=== PATIENT | female | born 1965 | race Caucasian/White ===

== ENCOUNTER 2016-11-20 11:20 | Emergency (ER) | payer OTHER ==
[2016-11-20 12:01] LABS: HEMOGLOBIN 10.1 gm/dl (12.3-15.3); RED BLOOD COUNT 3.86 M/UL (4.00-5.10); WHITE BLOOD COUNT 12.7 K/UL (4.5-11.0)
[2016-11-20 12:33] LABS: BUN/CREATININE RATIO 22 (0-10)
[2017-03-12] MEDS ORDERED: ALBUTEROL INH (07:01)
[2017-03-12] MEDS ORDERED: BREO ELLIPTA 11 EACH INH (07:02)
[2017-03-12] MEDS ORDERED: FEROSUL325 MG PO (07:03)
[2017-03-12] MEDS ORDERED: BENTYL 20MG TAB20 MG PO (07:03)
[2017-03-12] MEDS ORDERED: NEURONTIN 400400 MG PO (07:04)
[2017-03-12] MEDS ORDERED: NITROSTAT0.4 MG PO ×2 (07:05→07:09)
[2017-03-12] MEDS ORDERED: VISTARIL25 MG PO (07:05)
[2017-03-12] MEDS ORDERED: TRINTELLIX PO (07:06)
[2017-03-12] MEDS ORDERED: VENTOLIN HFA 66.7 GM INH (07:07)
[2017-03-12] MEDS ORDERED: VITAMIN D350000 UNIT PO (07:08)
== END 2016-11-20 15:37 | disposition home or self-care (01) ==
LOC: ER1 11:20
PROVIDERS: Family Medicine
DX: J18.0 Bronchopneumonia, unspecified organism (principal); I10 Essential (primary) hypertension; J45.909 Unspecified asthma, uncomplicated; F17.210 Nicotine dependence, cigarettes, uncomplicated; Z88.2 Allergy status to sulfonamides; Z90.49 Acquired absence of other specified parts of digestive tract
CPT/HCPCS: 36415; 71010; 80053; 82140; 82150; 82550; 82553; 83690; 83874; 84484; 85025; 87040; 93005; 96374; 96375; 99284; J1956; J2270; J2405; J2930

== ENCOUNTER → 2017-01-19 | Outpatient (CLI) | payer OTHER ==
[~2017-01-19] MED LIST: ALBUTEROL INH; BENTYL 20MG TAB20 MG PO; BREO ELLIPTA 11 EACH INH; FEROSUL325 MG PO; NEURONTIN 400400 MG PO; NITROSTAT0.4 MG PO; TRINTELLIX PO; VENTOLIN HFA 66.7 GM INH; VISTARIL25 MG PO; VITAMIN D350000 UNIT PO
== END ==
LOC: EXRD 09:55
DX: R06.02 Shortness of breath (principal); J42 Unspecified chronic bronchitis
CPT/HCPCS: 71020

== ENCOUNTER 2017-03-07 11:53 | Emergency (ER) | payer OTHER ==
[2017-03-07 13:02] LABS: RED BLOOD COUNT 4.27 M/UL (4.00-5.10); WHITE BLOOD COUNT 7.4 K/UL (4.5-11.0)
[2017-03-07 13:16] LABS: BUN/CREATININE RATIO 38 (0-10)
[2017-03-12] MEDS ORDERED: ALBUTEROL INH (07:01)
[2017-03-12] MEDS ORDERED: BREO ELLIPTA 11 EACH INH (07:02)
[2017-03-12] MEDS ORDERED: BENTYL 20MG TAB20 MG PO (07:03)
[2017-03-12] MEDS ORDERED: FEROSUL325 MG PO (07:03)
[2017-03-12] MEDS ORDERED: NEURONTIN 400400 MG PO (07:04)
[2017-03-12] MEDS ORDERED: NITROSTAT0.4 MG PO ×2 (07:05→07:09)
[2017-03-12] MEDS ORDERED: VISTARIL25 MG PO (07:05)
[2017-03-12] MEDS ORDERED: TRINTELLIX PO (07:06)
[2017-03-12] MEDS ORDERED: VENTOLIN HFA 66.7 GM INH (07:07)
[2017-03-12] MEDS ORDERED: VITAMIN D350000 UNIT PO (07:08)
== END 2017-03-07 14:35 | disposition home or self-care (01) ==
LOC: ER1 11:53
PROVIDERS: Physician Assistant Medical
DX: S39.012A Strain of muscle, fascia and tendon of lower back, initial encounter (principal); R10.9 Unspecified abdominal pain; I10 Essential (primary) hypertension; D64.9 Anemia, unspecified; J45.909 Unspecified asthma, uncomplicated; J44.9 Chronic obstructive pulmonary disease, unspecified; F17.210 Nicotine dependence, cigarettes, uncomplicated; Z88.2 Allergy status to sulfonamides; X50.9XXA Other and unspecified overexertion or strenuous movements or postures, initial encounter
CPT/HCPCS: 36415; 72131; 80053; 81001; 83605; 85025; 96361; 96374; 96375; 96376; 99284; J2270; J2405; J7030

== ENCOUNTER → 2017-03-12 | Day surgery (SDC) | payer OTHER | END | disposition home or self-care (01) | LOC: OR 06:38 | PROVIDERS: Surgery | PROC: 0DJ08ZZ Inspection of Upper Intestinal Tract, Via Natural or Artificial Opening Endoscopic (ICD-10-PCS; principal; 2017-03-12 07:30) | PROC: 0DJD8ZZ Inspection of Lower Intestinal Tract, Via Natural or Artificial Opening Endoscopic (ICD-10-PCS; 2017-03-12 07:30) | DX: R19.5 Other fecal abnormalities (principal); R10.13 Epigastric pain; D64.9 Anemia, unspecified; M19.90 Unspecified osteoarthritis, unspecified site; M06.9 Rheumatoid arthritis, unspecified; E55.9 Vitamin D deficiency, unspecified; J44.9 Chronic obstructive pulmonary disease, unspecified; E11.9 Type 2 diabetes mellitus without complications; I10 Essential (primary) hypertension; F17.210 Nicotine dependence, cigarettes, uncomplicated; Z98.84 Bariatric surgery status; Z87.19 Personal history of other diseases of the digestive system; Z90.49 Acquired absence of other specified parts of digestive tract; Z88.2 Allergy status to sulfonamides; Z88.8 Allergy status to other drugs, medicaments and biological substances; Z79.899 Other long term (current) drug therapy; Z90.710 Acquired absence of both cervix and uterus; Z86.69 Personal history of other diseases of the nervous system and sense organs | CPT/HCPCS: J7120 ==

== ENCOUNTER 2020-09-15 12:01 | Inpatient (IN) | payer OTHER ==
[~2020-09-15] VITALS: Ht 160 cm; Wt 64.4 kg
[~2020-09-15 12:01] MED LIST changes: -ALBUTEROL INH; +AUGMENTIN TAB875 MG PO; +BENADRYL ALLERG25 MG PO; +DULERA 200 MCG8.8 GM INH; +FERROUS SULFAT325 MG PO; +HABITROL 21 MG P1 EA TD; +MEDROL DOSEPAK 24 MG PO; +OMNICEF 300 MG300 MG PO; +PREDNISONE 50 M50 MG PO; +ZANTAC150 MG PO; +ZITHROMAX250 MG PO
[2020-09-15 12:46] LABS: HEMOGLOBIN 10.3 gm/dl (12.3-15.3); RED BLOOD COUNT 4.23 M/UL (4.00-5.10); WHITE BLOOD COUNT 19.1 K/UL (4.5-11.0)
[2020-09-15 13:06] LABS: BUN/CREATININE RATIO 26 (0-10)
[2020-09-15] MEDS ORDERED: GABAPENTIN300 MG PO (14:51)
[2020-09-15] MEDS ORDERED: IPRAT-ALBUT 0.5-3 ML INH (14:52)
[2020-09-15] MEDS ORDERED: TESSALON PERLE100 MG PO (14:53)
[2020-09-15] MEDS ORDERED: PHENERGAN 25 MG25 M1 PO (14:54)
[2020-09-15] MEDS ORDERED: TRELEGY ELLIPT1 EACH INH (14:54)
[2020-09-15] MEDS ORDERED: AZOR 10-20 MG1 EACH PO (14:55)
[2020-09-15] MEDS ORDERED: FLONASE 0.05% N16 GM (14:56)
[2020-09-15] MEDS ORDERED: MOBIC7.5 MG PO (14:56)
[2020-09-15] MEDS ORDERED: CYANOCOBAL1000 MCG/1 INJ (14:56)
[2020-09-15] MEDS ORDERED: CATAPRES 0.1MG0.1 MG PO (14:57)
[2020-09-15] MEDS ORDERED: HYDROCODON-ACE1 EAC4 PO (14:57)
[2020-09-15] MEDS ORDERED: TYLENOL325 MG PO (14:58)
[2020-09-15] MEDS ORDERED: ASPIRIN EC81 MG PO (14:58)
[2020-09-15] MEDS ORDERED: DAILY MULTIPLE1 EAC1 PO (14:59)
[2020-09-15] MEDS ORDERED: PAMELOR 25 MG C25 MG PO (14:59)
[2020-09-16 06:50] LABS: BUN/CREATININE RATIO 33 (0-10)
[2020-09-16 07:00] LABS: HEMOGLOBIN 9.5 gm/dl (12.3-15.3); RED BLOOD COUNT 3.94 M/UL (4.00-5.10); WHITE BLOOD COUNT 16.7 K/UL (4.5-11.0)
[2020-09-18 12:59] LABS: HEMOGLOBIN 10.2 gm/dl (12.3-15.3); RED BLOOD COUNT 4.09 M/UL (4.00-5.10); WHITE BLOOD COUNT 16.9 K/UL (4.5-11.0)
[2020-09-18 13:12] LABS: BUN/CREATININE RATIO 32 (0-10)
[2020-09-20 06:44] LABS: HEMOGLOBIN 9.8 gm/dl (12.3-15.3); RED BLOOD COUNT 3.92 M/UL (4.00-5.10); WHITE BLOOD COUNT 18.8 K/UL (4.5-11.0)
[2020-09-20 07:06] LABS: BUN/CREATININE RATIO 38 (0-10)
[2020-09-20] MEDS ORDERED: NICOTINE PATCH1 EAC1 TD (11:58)
[2020-09-20] MEDS ORDERED: ZITHROMAX250 MG PO (11:58)
[2020-09-20] MEDS ORDERED: TRELEGY ELLIPT1 EACH INH (11:58)
[2020-09-20] MEDS ORDERED: AMLODIPINE BESYL5 MG PO (11:59)
[2020-09-20] MEDS ORDERED: FEOSOL325 MG PO (12:14)
--- NOTE | 2020-09-20 12:19 | NUR ---
PTS OXYGEN SATURATION 87 PERCENT ON ROOM AIR
== END 2020-09-20 16:16 | disposition home or self-care (01) | DRG 196 ==
LOC: ER1 12:01 → CDU 14:25 → M/S 14:25
PROVIDERS: Physician Assistant; Preventive Medicine Occupational Medicine; ADMIT Internal Medicine Infectious Disease
DX: J84.10 Pulmonary fibrosis, unspecified (principal); J96.01 Acute respiratory failure with hypoxia; J45.901 Unspecified asthma with (acute) exacerbation; J44.9 Chronic obstructive pulmonary disease, unspecified; D50.9 Iron deficiency anemia, unspecified; I10 Essential (primary) hypertension; F17.210 Nicotine dependence, cigarettes, uncomplicated; K21.9 Gastro-esophageal reflux disease without esophagitis; Z20.828 Contact with and (suspected) exposure to other viral communicable diseases; Z79.82 Long term (current) use of aspirin; Z79.899 Other long term (current) drug therapy; Z99.81 Dependence on supplemental oxygen; Z90.710 Acquired absence of both cervix and uterus; Z85.43 Personal history of malignant neoplasm of ovary; Z82.49 Family history of ischemic heart disease and other diseases of the circulatory system; Z88.1 Allergy status to other antibiotic agents; Z88.2 Allergy status to sulfonamides; G89.4 Chronic pain syndrome
CPT/HCPCS: 36415; 36600; 71045; 71046; 71275; 80053; 82550; 82553; 82607; 82728; 82746; 82803; 83540; 83550; 83605; 83690; 83874; 83880; 84484; 85025; 85379; 85652; 86140; 87040; 87278; 87635; 93005; 94640; 94760; 96365; 96366; 96367; 96375; 99285; J0456; J0696; J1650; J1756; J1940; J2405; J2543; J2920; J2930; J7030; Q9967

== ENCOUNTER → 2020-12-15 | Outpatient (CLI) | payer OTHER ==
[~2020-12-15] MED LIST changes: +AMLODIPINE BESYL5 MG PO; +ASPIRIN EC81 MG PO; +AZOR 10-20 MG1 EACH PO; +CATAPRES 0.1MG0.1 MG PO; +CYANOCOBAL1000 MCG/1 INJ; +DAILY MULTIPLE1 EAC1 PO; +FEOSOL325 MG PO; +FLONASE 0.05% N16 GM; +GABAPENTIN300 MG PO; +HYDROCODON-ACE1 EAC4 PO; +IPRAT-ALBUT 0.5-3 ML INH; +MOBIC7.5 MG PO; +NICOTINE PATCH1 EAC1 TD; +PAMELOR 25 MG C25 MG PO; +PHENERGAN 25 MG25 M1 PO; +TESSALON PERLE100 MG PO; +TRELEGY ELLIPT1 EACH INH; +TYLENOL325 MG PO
== END ==
LOC: RAD 15:50
DX: J44.1 Chronic obstructive pulmonary disease with (acute) exacerbation (principal); J84.9 Interstitial pulmonary disease, unspecified
CPT/HCPCS: 71046

== ENCOUNTER → 2021-01-21 | Outpatient (CLI) | payer OTHER | LOC: HEART 5 11:12 | DX: J44.9 Chronic obstructive pulmonary disease, unspecified (principal); R94.2 Abnormal results of pulmonary function studies | CPT/HCPCS: 94060; 94729 ==

== ENCOUNTER → 2021-01-21 | Outpatient (CLI) | payer OTHER | LOC: RT 12:26 | DX: R09.02 Hypoxemia (principal); D64.9 Anemia, unspecified; J30.9 Allergic rhinitis, unspecified | CPT/HCPCS: 36600; 82803 ==

== ENCOUNTER 2021-04-01 12:26 | Emergency (ER) | payer OTHER | END 2021-04-01 14:06 | disposition left against medical advice (07) | LOC: ER1 12:26 | DX: Z53.21 Procedure and treatment not carried out due to patient leaving prior to being seen by health care provider (principal) ==

== ENCOUNTER 2021-04-17 18:31 | Emergency (ER) | payer OTHER ==
[2021-04-17 19:38] LABS: HEMOGLOBIN 14.6 gm/dl (12.3-15.3); RED BLOOD COUNT 4.83 M/UL (4.00-5.10); WHITE BLOOD COUNT 9.9 K/UL (4.5-11.0)
[2021-04-17 20:09] LABS: BUN/CREATININE RATIO 16 (0-10)
[2021-04-17] MEDS ORDERED: PREDNISONE20 MG PO (20:41)
== END 2021-04-17 20:55 | disposition home or self-care (01) ==
LOC: ER1 18:31
PROVIDERS: Family Medicine
DX: J45.901 Unspecified asthma with (acute) exacerbation (principal); Z88.1 Allergy status to other antibiotic agents; Z88.2 Allergy status to sulfonamides
CPT/HCPCS: 71046; 80053; 82550; 82553; 84484; 85025; 94640; 94664; 96374; 99285; J2930

== ENCOUNTER 2021-10-14 09:18 | Emergency (ER) | payer OTHER ==
[~2021-10-14 09:18] MED LIST changes: +PREDNISONE20 MG PO
[2021-10-14 10:33] LABS: HEMOGLOBIN 13.4 gm/dl (12.3-15.3); RED BLOOD COUNT 4.25 M/UL (4.00-5.10)
[2021-10-14 11:09] LABS: BUN/CREATININE RATIO 24 (0-10)
[2021-10-14] MEDS ORDERED: MEDROL4 MG PO (12:08)
[2021-10-16 01:30] LABS: ACINETOBACTER BAUMANNII Not Detected (Negative); CANDIDA ALBICANS Not Detected (Negative); CANDIDA KRUSEI Not Detected (Negative); CANDIDA TROPICALIS Not Detected (Negative); ENTEROCOCCUS Not Detected (Negative); ESCHERICHIA COLI Not Detected (Negative); HAEMOPHILUS INFLUENZAE Not Detected (Negative); KLEBSIELLA OXYTOCA Not Detected (Negative); KLEBSIELLA PNEUMONIAE Not Detected (Negative); KPC-CARBAPENEM-RESISTANCE GENE Not Detected (Negative); PROTEUS Not Detected (Negative); PSEUDOMONAS AERUGINOSA Not Detected (Negative); SERRATIA MARCESANS Not Detected (Negative); STAPHYLOCOCCUS Not Detected (Negative); STAPHYLOCOCCUS AUREUS Not Detected (Negative); STREP AGALACTIAE (GROUP B) Not Detected (Negative); STREP PYOGENES (GROUP A) Not Detected (Negative); STREPTOCOCCUS Not Detected (Negative); mecA (METHICILLIN RESIST GENE Not Detected (Negative); vanA/B (VANCOMYCIN RESIST GENE Not Detected (Negative)
== END 2021-10-14 12:35 | disposition home or self-care (01) ==
LOC: ER1 09:18
PROVIDERS: Emergency Medicine
DX: U07.1 COVID-19 (principal); J12.82 Pneumonia due to coronavirus disease 2019; J44.1 Chronic obstructive pulmonary disease with (acute) exacerbation; L98.499 Non-pressure chronic ulcer of skin of other sites with unspecified severity; E11.9 Type 2 diabetes mellitus without complications; Z98.84 Bariatric surgery status; Z90.49 Acquired absence of other specified parts of digestive tract
CPT/HCPCS: 0240U; 36600; 71045; 80053; 82550; 82553; 82803; 83874; 83880; 84484; 85025; 85379; 87040; 87150; 93005; 94640; 94664; 96374; 96375; 99285; J0696; J2930

== ENCOUNTER 2022-02-01 10:16 | Emergency (ER) | payer OTHER ==
[~2022-02-01 10:16] MED LIST changes: +MEDROL4 MG PO
[2022-02-01] MEDS ORDERED: MELOXICAM15 MG PO (12:40)
== END 2022-02-01 13:05 | disposition home or self-care (01) ==
LOC: ER1 10:16
DX: F11.90 Opioid use, unspecified, uncomplicated (principal); M25.50 Pain in unspecified joint; K21.9 Gastro-esophageal reflux disease without esophagitis; J44.9 Chronic obstructive pulmonary disease, unspecified; Z90.710 Acquired absence of both cervix and uterus; Z88.2 Allergy status to sulfonamides; Z88.1 Allergy status to other antibiotic agents
CPT/HCPCS: 96372; 99283; J1100; J1885

== ENCOUNTER → 2022-02-07 | Outpatient (CLI) | payer OTHER ==
[~2022-02-07] MED LIST changes: +MELOXICAM15 MG PO
[2022-02-07 12:49] LABS: RED BLOOD COUNT 4.21 M/UL (4.00-5.10); WHITE BLOOD COUNT 13.7 K/UL (4.5-11.0)
[2022-02-07 13:14] LABS: BUN/CREATININE RATIO 26 (0-10)
[2022-02-08 08:21] LABS: HBSAG SCREEN Negative (Negative); HCV AB <0.1 (0.0-0.9); HEP A AB, IGM Negative (Negative); HEP B CORE AB, IGM Negative (Negative)
== END ==
LOC: LAB 12:06
PROVIDERS: Nurse Practitioner Family
DX: R53.83 Other fatigue (principal); R42 Dizziness and giddiness; R19.7 Diarrhea, unspecified; Z20.822 Contact with and (suspected) exposure to COVID-19
CPT/HCPCS: 0240U; 36415; 80053; 80074; 82150; 82550; 83036; 83605; 83690; 85025; 85652; 86140

== ENCOUNTER 2022-05-27 15:35 | Inpatient (IN) | payer OTHER ==
[~2022-05-27] VITALS: Ht 160 cm; Wt 65.8 kg
[~2022-05-27 15:35] MED LIST changes: -GABAPENTIN300 MG PO; +GABAPENTIN600 MG PO; -HYDROCODON-ACE1 EAC4 PO; +HYDROCODON-ACE1 EAC6 PO; +PROAIR HFA8.5 GM INH
[2022-05-27 16:28] LABS: RED BLOOD COUNT 3.6 M/UL (4.00-5.10); WHITE BLOOD COUNT 15.4 K/UL (4.5-11.0)
[2022-05-27 16:31] LABS: BORDETELLA PARAPERTUSSIS Not Detected (Not Detectd); BORDETELLA PERTUSSIS Not Detected (Not Detectd); CHLAMYDIA PNEUMONIAE Not Detected (Not Detectd); CORONAVIRUS HKU1 Not Detected (Not Detectd); CORONAVIRUS NL63 Not Detected (Not Detectd); CORONAVIRUS OC43 Not Detected (Not Detectd); CORONOAVIRUS 229E Not Detected (Not Detectd); HUMAN METAPNEUMOVIRUS Not Detected (Not Detectd); HUMAN RHINOVIRUS/ENTEROVIRUS Not Detected (Not Detectd); INFLUENZA A Not Detected (Not Detectd); INFLUENZA B Not Detected (Not Detectd); MYCOPLASMA PNEUMONIAE Not Detected (Not Detectd); PARAINFLUENZA VIRUS 1 Not Detected (Not Detectd); PARAINFLUENZA VIRUS 2 Not Detected (Not Detectd); PARAINFLUENZA VIRUS 3 Not Detected (Not Detectd); PARAINFLUENZA VIRUS 4 Not Detected (Not Detectd); RESPIRATORY SYNCYTIAL VIRUS Not Detected (Not Detectd)
[2022-05-27 16:49] LABS: BUN/CREATININE RATIO 30 (0-10)
[2022-05-27 17:34] LABS: SARS-CoV-2 NOT DETECTED (Not Detectd)
[2022-05-28 05:46] LABS: HEMOGLOBIN 9.5 gm/dl (12.3-15.3); RED BLOOD COUNT 3.43 M/UL (4.00-5.10); WHITE BLOOD COUNT 12.7 K/UL (4.5-11.0)
[2022-05-28 06:25] LABS: BUN/CREATININE RATIO 16 (0-10)
[2022-05-28] MEDS ORDERED: CARBAMAZEPINE100 M1 PO (10:34)
[2022-05-28] MEDS ORDERED: DILT-XR240 MG PO (10:34)
[2022-05-28] MEDS ORDERED: FOLIC ACID 1 MG1 MG PO (10:35)
[2022-05-28] MEDS ORDERED: DRISDOL1250 MCG PO (10:35)
[2022-05-28] MEDS ORDERED: IBU400 MG PO (10:35)
[2022-05-28] MEDS ORDERED: ENBREL50 MG/1 M1 SQ (10:35)
[2022-05-28] MEDS ORDERED: METHOTREXATE T2.5 MG PO (10:36)
[2022-05-28] MEDS ORDERED: NICODERM CQ1 EAC2 TD (10:37)
[2022-05-28] MEDS ORDERED: PROMETHAZINE HC25 M1 PO (10:37)
[2022-05-28] MEDS ORDERED: PREDNISONE 20 M20 MG PO (10:38)
[2022-05-28] MEDS ORDERED: PROMETHAZINE-D473 M1 PO (10:41)
[2022-05-29 06:29] LABS: HEMOGLOBIN 9.3 gm/dl (12.3-15.3); RED BLOOD COUNT 3.28 M/UL (4.00-5.10); WHITE BLOOD COUNT 9.9 K/UL (4.5-11.0)
[2022-05-29 06:54] LABS: BUN/CREATININE RATIO 11 (0-10)
[2022-05-29] MEDS ORDERED: DOXYCYCLINE HY100 M2 PO (11:32)
[2022-05-29] MEDS ORDERED: MIRALAX17 GM PO (14:14)
[2022-05-29] MEDS ORDERED: OMNICEF 300 MG300 MG PO (14:14)
[2022-05-29] MEDS ORDERED: PULMICORT0.5 MG/2 M INH (14:14)
[2022-05-29] MEDS ORDERED: COLACE100 MG PO (14:14)
[2022-05-29] MEDS ORDERED: ZOFRAN 4 MG TAB4 MG PO (14:17)
--- NOTE | 2022-05-29 14:35 | NUR ---
PATIENT HAS COUGH MEDICINE AT HOME CONTAINING PHENERGAN. PATIENT ALSO PERSCRIBED PHENERGAN BY PROVIDER FOR NAUSEA. PATIENT EDUCATED AT DISCHARGE NOT TO TAKE BOTH TOGETHER DUE TO THE SEDATIVE EFFECTS OF PHENERGAN.
== END 2022-05-29 15:00 | disposition home or self-care (01) | DRG 388 ==
LOC: ER1 15:35 → MED SURG 4 23:16 → CDU 23:16 → MED SURG 4 05-28 00:07
PROVIDERS: Internal Medicine; Physician Assistant Medical; ADMIT Student in an Organized Health Care Education/Training Program
DX: K56.609 Unspecified intestinal obstruction, unspecified as to partial versus complete obstruction (principal); J12.9 Viral pneumonia, unspecified; J44.1 Chronic obstructive pulmonary disease with (acute) exacerbation; F11.20 Opioid dependence, uncomplicated; J44.0 Chronic obstructive pulmonary disease with (acute) lower respiratory infection; I10 Essential (primary) hypertension; E11.9 Type 2 diabetes mellitus without complications; D64.9 Anemia, unspecified; E87.6 Hypokalemia; F17.210 Nicotine dependence, cigarettes, uncomplicated; Z99.81 Dependence on supplemental oxygen; Z90.710 Acquired absence of both cervix and uterus; Z90.49 Acquired absence of other specified parts of digestive tract; Z98.51 Tubal ligation status
CPT/HCPCS: 36600; 70450; 71045; 80048; 80053; 80307; 81001; 82009; 82550; 82553; 82803; 83605; 84484; 85025; 85027; 87040; 87086; 87633; 93005; 94640; 94664; 94760; J0456; J0696; J1650; J2270; J2405; J2920; J7030; Q9967